=== PATIENT | female | born 1960 | race Caucasian/White ===

== ENCOUNTER 2016-05-05 06:06 | Emergency (ER) | payer OTHER ==
[~2016-05-05 06:06] MED LIST: LORA0.5T PO; PHEN100C PO; TOPI50TA4 PO
[2016-05-05] MEDS ORDERED: VITAMIN B (07:43)
[2016-05-05] MEDS ORDERED: ZOLP5TAB4 PO (07:44)
[2016-05-05] MEDS ORDERED: TIZA4TAB PO (07:45)
[2016-05-05] MEDS ORDERED: ALBU1.25 NEB (07:45)
--- NOTE | 2016-05-05 07:51 | PHYS DOC ---
Past Medical History Past Medical History: Anxiety, Seizure Past Surgical History: Smoking: Less than 1pk/day Alcohol Use: None Drug Use: None Adult General Chief Complaint Chief Complaint: COUGH HPI HPI Patient is a 56 year old female who presents with productive cough and shortness of breath for 3 weeks. She has had nasal congestion, sore throat, and ear pain. She states that she began to feel worse last night with high fevers. She did not take her temperature at home. She denies any vomiting or diarrhea. She has an inhaler and nebulizer at home, both of which she last used yesterday. She saw her PCP last week for the same symptoms. She was prescribed amoxicillin, cough medicine, and a nasal spray. She did not receive a flu shot this season. Her PCP is Dr. Zeinab Tobias. Review of Systems Review of Systems Constitutional: Reports subjective fever. Eyes: Denies change in visual acuity, redness, or eye pain. [] HENT: Reports bilateral ear pain, nasal congestion, and sore throat. Respiratory: Reports productive cough and shortness of breath. Cardiovascular: Denies chest pain, palpitations or edema. [] GI: Denies abdominal pain, nausea, vomiting, bloody stools or diarrhea. [] Musculoskeletal: Denies back pain or joint pain. [] Integument: Denies rash or skin lesions. [] Neurologic: Denies headache, focal weakness or sensory changes. [] All systems reviewed and negative unless otherwise stated in the HPI. Current Medications Current Medications Current Medications Medications (Trade) Dose Ordered Sig/[facility] Start Time Stop Time Status Last Admin Dose Admin Acetaminophen 1000 mg 1,000 mg 1X ONCE 05/05/16 08:00 05/05/16 08:01 DC 05/05/16 08:54 1,000 MG Sodium Chloride (Iv Sodium Chloride 0.9% 1000ml Bag) 1,000 ml @ 1,000 mls/hr 1X ONCE 05/05/16 09:00 05/05/16 09:59 05/05/16 08:54 1,000 MLS/HR Allergies Allergies Allergies Coded Allergies Type Severity Reaction Last Updated Verified No Known Drug Allergies 04/03/13 No Physical Exam Physical Exam Constitutional: Well developed, well nourished, no acute distress, non-toxic appearance. [] HENT: Normocephalic, atraumatic, bilateral external ears normal, oropharynx moist, no oral exudates, nose normal. Bilateral TMs without erythema or bulging. There is no posterior pharyngeal erythema or tonsillar edema. Bilateral nasal turbinates are mildly swollen and erythematous. Eyes: PERRLA, EOMI, conjunctiva normal, no discharge. [] Neck: Normal range of motion, no tenderness, supple, no stridor. [] Cardiovascular: Heart rate regular rhythm, no murmur [] Lungs & Thorax: Bilateral breath sounds clear to auscultation without wheezes, rales, or rhonchi. No respiratory distress. Skin: Warm, dry, no erythema, no rash. [] Neurologic: Alert and oriented X 3, normal motor function, normal sensory function, no focal deficits noted. [] Psychologic: Affect normal, judgement normal, mood normal. [] Current Patient Data Vital Signs Vital Signs Date Time Temp Pulse Resp B/P Pulse Ox O2 Delivery O2 Flow Rate FiO2 05/05/16 07:39 102.4 104 16 116/66 100 102.4 Lab Values Laboratory Tests Test 05/05/16 07:45 05/05/16 08:30 Influenza Type A Antigen Positive (NEGATIVE) Influenza Type B Antigen Negative (NEGATIVE) White Blood Count 12.3x10^3/uL (4.0-11.0) H Red Blood Count 4.55x10^6/uL (3.50-5.40) Hemoglobin 12.5g/dL (12.0-15.5) Hematocrit 38.0% (36.0-47.0) Mean Corpuscular Volume 84fL (79-100) Mean Corpuscular Hemoglobin 28pg (25-35) Mean Corpuscular Hemoglobin Concent 33g/dL (31-37) Red Cell Distribution Width 13.2% (11.5-14.5) Platelet Count 170x10^3/uL (140-400) Neutrophils (%) (Auto) 82% (31-73) H Lymphocytes (%) (Auto) 10% (24-48) L Monocytes (%) (Auto) 7% (0-9) Eosinophils (%) (Auto) 0% (0-3) Basophils (%) (Auto) 1% (0-3) Neutrophils # (Auto) 10.1x10^3uL (1.8-7.7) H Lymphocytes # (Auto) 1.3x10^3/uL (1.0-4.8) Monocytes # (Auto) 0.8x10^3/uL (0.0-1.1) Eosinophils # (Auto) 0.0x10^3/uL (0.0-0.7) Basophils # (Auto) 0.1x10^3/uL (0.0-0.2) Sodium Level 140mmol/L (136-145) Potassium Level 3.9mmol/L (3.5-5.1) Chloride Level 102mmol/L (98-107) Carbon Dioxide Level 26mmol/L (21-32) Anion Gap 12 (6-14) Blood Urea Nitrogen 19mg/dL (7-20) Creatinine 1.2mg/dL (0.6-1.0) H Estimated GFR (Cockcroft-Gault) 46.3 BUN/Creatinine Ratio 16 (6-20) Glucose Level 124mg/dL (70-99) H Calcium Level 8.6mg/dL (8.5-10.1) Total Bilirubin 0.2mg/dL (0.2-1.0) Aspartate Amino Transferase (AST) 50U/L (15-37) H Alanine Aminotransferase (ALT) 42U/L (14-59) Alkaline Phosphatase 194U/L (46-116) H XF-Def-W-Type Natriuretic Peptide 452pg/mL (0-124) H Total Protein 8.0g/dL (6.4-8.2) Albumin 3.3g/dL (3.4-5.0) L Albumin/Globulin Ratio 0.7 (1.0-1.7) L Laboratory Tests 05/05/16 08:30 Laboratory Tests 05/05/16 08:30 EKG EKG [] Radiology/Procedures Radiology/Procedures REASON: cough, fever, X 3 WEEKS - FEVER WORSENING X 2 DAYS PROCEDURE: CHEST PA & LATERAL Chest, 2 views, 05/05/2016: History: Cough and fever Comparison is made to a study from 07/13/2012. The heart size and pulmonary vascularity are normal. No pulmonary infiltrates are seen. There is no evidence of pleural fluid. There is a moderate amount of bowel gas in the upper abdomen. IMPRESSION: No acute cardiopulmonary abnormality is detected. Course & Med Decision Making Course & Med Decision Making Pertinent Labs and Imaging studies reviewed. (See chart for details) Patient is a 26-year-old female who presents with cough, shortness breath, and fever for 3 weeks, worsening last night. She is completed a course of amoxicillin without improvement. In the emergency department, she is febrile with a temperature of 102F. On exam, her lungs sounds are clear and she is not in any respiratory distress. Chest x-ray does not show any pneumonia. Flu swab is positive for influenza A. There were no other significant laboratory values. She is given a liter of fluids and Tylenol in the emergency department. She is discharged home with prescription for Tamiflu, prednisone, and Tessalon pearls. She is given follow-up with her PCP in 2-3 days. Return precautions are discussed. She verbalizes understanding and agrees with plan. Dragon Disclaimer Dragon Disclaimer This electronic medical record was generated, in whole or in part, using a voice recognition dictation system. Departure Departure Impression: Primary Impression: Influenza A Disposition: 01 HOME, SELF-CARE Condition: STABLE Referrals: ZEINAB TOBIAS MD (PCP) Patient Instructions: Influenza, Adult, [id number] Additional Instructions: You tested positive for influenza A. Your chest x-ray does not show pneumonia. There are no concerning laboratory findings. Complete all the prescribed medications. Please take Tylenol and ibuprofen for your fever. Please drink lots of water to stay hydrated. Please follow-up with your primary care doctor in the next 2-3 days, sooner if concerns. Return to emergency department with high fever not responding to medication, increased difficulty breathing, or other new or concerning symptoms. Scripts Oseltamivir Phosphate (Tamiflu)75 Mg Capsule1 Cap PO BID #10 CAP Prov:AARON ELIZABETH 05/05/16 Benzonatate 200 Mg Capsule1 Cap PO TID #30 CAP Prov:AARON ELIZABETH 05/05/16 Prednisone 20 Mg Votdue70 Mg PO DAILY 5 Days Prov:AARON ELIZABETH 05/05/16 AARON ELIZABETH May 05, 2016 07:51
[2016-05-05] MEDS ORDERED: ACETAMINOPHEN 500 MG TABLET PO ONE (08:00)
--- NOTE | 2016-05-05 08:03 | RAD ---
Chest, 2 views, 05/05/2016: History: Cough and fever Comparison is made to a study from 07/13/2012. The heart size and pulmonary vascularity are normal. No pulmonary infiltrates are seen. There is no evidence of pleural fluid. There is a moderate amount of bowel gas in the upper abdomen. IMPRESSION: No acute cardiopulmonary abnormality is detected.
[2016-05-05 08:17] LABS: OBC FLU VALID
[2016-05-05 08:42] LABS: BASO # 0.1 x10^3/uL (0.0-0.2); BASO % 1 % (0-3); EOS % 0 % (0-3); HEMOGLOBIN 12.5 g/dL (12.0-15.5); LYMPH # 1.3 x10^3/uL (1.0-4.8); LYMPH % 10 % (24-48); MEAN CORPUSCULAR HEMOGLOBIN 28 pg (25-35); MEAN CORPUSCULAR HGB CONC 33 g/dL (31-37); MEAN CORPUSCULAR VOLUME 84 fL (79-100); MONO % 7 % (0-9); NEUT % 82 % (31-73); PLATELET COUNT 170 x10^3/uL (140-400); RED BLOOD COUNT 4.55 x10^6/uL (3.50-5.40); RED CELL DISTRIBUTION WIDTH 13.2 % (11.5-14.5); WHITE BLOOD COUNT 12.3 x10^3/uL (4.0-11.0)
[2016-05-05 08:56] LABS: ALBUMIN 3.3 g/dL (3.4-5.0); ALBUMIN/GLOBULIN RATIO 0.7 (1.0-1.7); CALCIUM 8.6 mg/dL (8.5-10.1); CREATININE 1.2 mg/dL (0.6-1.0); GFR 46.3; POTASSIUM 3.9 mmol/L (3.5-5.1); TOTAL BILIRUBIN 0.2 mg/dL (0.2-1.0)
[2016-05-05] MEDS ORDERED: IV NORMAL SALINE 1000ML BAG 1,000 ML IV ONE (09:00)
[2016-05-05] MEDS ORDERED: OSEL75CA PO (09:21)
[2016-05-05] MEDS ORDERED: PRED20TA PO (09:21)
[2016-05-05] MEDS ORDERED: BENZ200C39 PO (09:21)
[2016-05-05 13:01] VITALS: BP 126/79
== END 2016-05-05 09:45 | disposition home or self-care (01) ==
LOC: ER 06:06
DX: J09.X2 Influenza due to identified novel influenza A virus with other respiratory manifestations (principal); H92.09 Otalgia, unspecified ear; F17.200 Nicotine dependence, unspecified, uncomplicated
CPT/HCPCS: 36415; 71020; 80053; 83880; 85027; 87804; 96360; 99285; J7030

== ENCOUNTER → 2016-05-16 | Outpatient (CLI) | payer OTHER ==
[2016-05-05 13:01] VITALS: BP 126/79
[~2016-05-16] MED LIST changes: +ALBU1.25 NEB; +BENZ200C39 PO; +OSEL75CA PO; +PRED20TA PO; +TIZA4TAB PO; +VITAMIN B; +ZOLP5TAB4 PO
--- NOTE | 2016-05-16 10:21 | RAD ---
DATE: 05/16/2016. EXAM: DIGITAL SCREEN BILAT W/CAD. HISTORY: Routine mammographic screening. COMPARISON: 10/04/2014. This study was interpreted with the benefit of Computerized Aided Detection (CAD). FINDINGS: The breast parenchyma heterogeneously dense, which could reduce sensitivity of mammography. There are no suspicious masses, microcalcifications or architectural distortion. Scattered and coarse calcifications appear benign. BI-RADS CATEGORY: 2 BENIGN FINDING(S). RECOMMENDED FOLLOW-UP: 12M 12 MONTH FOLLOW-UP. PQRS compliance statement: Patient information was entered into a reminder system with a target due date 05/16/2017 for the next mammogram. Mammography is a sensitive method for finding small breast cancers, but it does not detect them all and is not a substitute for careful clinical examination. A negative mammogram does not negate a clinically suspicious finding and should not result in delay in biopsying a clinically suspicious abnormality. "Our facility is accredited by the [employer] Mammography Program."
== END | disposition home or self-care (01) ==
LOC: MAMMO 09:13
PROVIDERS: ATTEND Pediatrics
DX: Z12.31 Encounter for screening mammogram for malignant neoplasm of breast (principal)
CPT/HCPCS: G0202; 77067

== ENCOUNTER 2016-10-10 18:46 | Inpatient (IN) | payer OTHER ==
[~2016-10-10] VITALS: Ht 160 cm; Wt 62.3 kg
[~2016-10-10 18:46] MED LIST changes: -BENZ200C39 PO; +BENZ200C47 PO; -TOPI50TA4 PO; +TOPI50TA8 PO; -ZOLP5TAB4 PO; +ZOLP5TAB5 PO
[2016-10-10 19:18] LABS: BASO # 0.1 x10^3/uL (0.0-0.2); BASO % 1 % (0-3); EOS % 3 % (0-3); HEMATOCRIT 37.7 % (36.0-47.0); HEMOGLOBIN 12.7 g/dL (12.0-15.5); LYMPH % 49 % (24-48); MEAN CORPUSCULAR HEMOGLOBIN 28 pg (25-35); MEAN CORPUSCULAR HGB CONC 34 g/dL (31-37); MEAN CORPUSCULAR VOLUME 83 fL (79-100); MONO % 7 % (0-9); NEUT % 40 % (31-73); PLATELET COUNT 107 x10^3/uL (140-400); RED BLOOD COUNT 4.54 x10^6/uL (3.50-5.40); RED CELL DISTRIBUTION WIDTH 13.5 % (11.5-14.5); WHITE BLOOD COUNT 10.4 x10^3/uL (4.0-11.0)
[2016-10-10 19:40] LABS: CALCIUM 8.9 mg/dL (8.5-10.1); CREATININE 0.9 mg/dL (0.6-1.0); GFR 64.5; POTASSIUM 3.8 mmol/L (3.5-5.1)
[2016-10-10 19:46] LABS: ALBUMIN 3.4 g/dL (3.4-5.0); ALBUMIN/GLOBULIN RATIO 0.9 (1.0-1.7); TOTAL BILIRUBIN 0.1 mg/dL (0.2-1.0); TOTAL PROTEIN 7.3 g/dL (6.4-8.2)
[2016-10-10 20:02] LABS: BILIRUBIN,URINE NEGATIVE (NEG); GLUCOSE,URINE NEGATIVE (NEG); NITRITE,URINE NEGATIVE (NEG); PROTEIN,URINE NEGATIVE (NEG-TRACE)
[2016-10-10 20:19] LABS: BACTERIA,URINE 0 /HPF (0-FEW); RBC,URINE OCC /HPF (0-2); SQUAMOUS EPITHELIAL CELL,UR MOD /LPF
[2016-10-10] MEDS ORDERED: ACETAMINOPHEN 325 MG TABLET. PO PRN (21:15)
[2016-10-10] MEDS ORDERED: NITROGLYCERIN SUBLINGUAL 0.4 MG BOTTLE OF 25. SL PRN (21:15)
[2016-10-10] MEDS ORDERED: ONDANSETRON PF 4 MG/2 ML VIAL. IV PRN (21:15)
--- NOTE | 2016-10-10 21:43 | PHYS DOC ---
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 Patient reports that she is currently pain-free. Patient reports that the pain felt like a pressure sensation however she also described at times as a sharp stabbing pain as well. Patient denies any shortness of breath with it. Patient reports she was diaphoretic however she reports that she was sitting in an aunt air conditioned apartment. Patient has any radiating pain to her arms or back. Patient has a nausea or vomiting. Patient denies any recent fevers cough cold runny nose vomiting or diarrhea. Patient denies any abdominal pain. Patient reports that she had a extra stress test approximately 10 years ago that was normal. Patient denies any other interrogation of her heart over the last 10 years. Patient reports no prior cardiac catheterization. Patient reports no recent stress test. Patient reports she does not have a primary care physician. Patient denies any history of diabetes. Patient reports she thinks she has hypertension. Patient reports a history of seizures in the past. Patient reports she takes Ativan for seizures. Patient's physical exam is unremarkable the ER. Patient's heart with regular rate and rhythm. Lungs were clear. Abdomen was soft nontender no rebound or guarding. Patient has no reproducible tenderness to palpation to her anterior chest wall. Patient's ER labs were unremarkable. Patient had a normal CBC and chemistry. Patient's troponin is unremarkable. Patient's EKG revealed normal sinus rhythm at a heart rate of [address]-T wave abnormalities. Patient has poor wave heart rate progression in V1 through V3 consistent with an age- indeterminate anteroseptal wall DE likely old. Assessment and plan: This a 56-year-old female who presents here today secondary to complaint of chest pain. Patient has a history of hypertension. Patient's pain is atypical however given her age and her symptoms patient will be admitted for rule out DE protocol and to evaluate by cardiology and serial troponins and EKGs. Laboratory Tests Test 10/10/16 19:05 10/10/16 19:35 White Blood Count 10.4 x10^3/uL Red Blood Count 4.54 x10^6/uL Hemoglobin 12.7 g/dL Hematocrit 37.7 % Mean Corpuscular Volume 83 fL Mean Corpuscular Hemoglobin 28 pg Mean Corpuscular Hemoglobin Concent 34 g/dL Red Cell Distribution Width 13.5 % Platelet Count 107 x10^3/uL Neutrophils (%) (Auto) 40 % Lymphocytes (%) (Auto) 49 % Monocytes (%) (Auto) 7 % Eosinophils (%) (Auto) 3 % Basophils (%) (Auto) 1 % Neutrophils # (Auto) 4.2 x10^3uL Lymphocytes # (Auto) 5.0 x10^3/uL Monocytes # (Auto) 0.7 x10^3/uL Eosinophils # (Auto) 0.3 x10^3/uL Basophils # (Auto) 0.1 x10^3/uL Sodium Level 142 mmol/L Potassium Level 3.8 mmol/L Chloride Level 107 mmol/L Carbon Dioxide Level 25 mmol/L Anion Gap 10 Blood Urea Nitrogen 17 mg/dL Creatinine 0.9 mg/dL Estimated GFR (Cockcroft-Gault) 64.5 BUN/Creatinine Ratio 19 Glucose Level 106 mg/dL Calcium Level 8.9 mg/dL Total Bilirubin 0.1 mg/dL Aspartate Amino Transf (AST/SGOT) 22 U/L Alanine Aminotransferase (ALT/SGPT) 17 U/L Alkaline Phosphatase 201 U/L Troponin I Quantitative < 0.017 ng/mL LC-Eie-D-Type Natriuretic Peptide 137 pg/mL Total Protein 7.3 g/dL Albumin 3.4 g/dL Albumin/Globulin Ratio 0.9 Urine Collection Type Unknown Urine Color Yellow Urine Clarity Clear Urine pH 7.0 Urine Specific [place] 1.015 Urine Protein Negative mg/dL Urine Glucose (UA) Negative mg/dL Urine Ketones (Stick) Negative mg/dL Urine Blood Negative Urine Nitrite Negative Urine Bilirubin Negative Urine Urobilinogen Dipstick 1.0 mg/dL Urine Leukocyte Esterase Negative Urine RBC Occ /HPF Urine WBC 1-4 /HPF Urine Squamous Epithelial Cells Mod /LPF Urine Bacteria 0 /HPF Urine Mucus Slight /LPF Review of Systems Review of Systems Constitutional: Denies fever or chills [] Eyes: Denies change in visual acuity, redness, or eye pain [] HENT: Denies nasal congestion or sore throat [] All other review systems are negative except as documented in the history of present illness portion. Allergies Allergies Allergies Coded Allergies Type Severity Reaction Last Updated Verified No Known Drug Allergies 04/03/13 No Physical Exam Physical Exam Constitutional: Well developed, well nourished, no acute distress, non-toxic appearance. [] HENT: Normocephalic, atraumatic, bilateral external ears normal, oropharynx moist, no oral exudates, nose normal. [] Eyes: PERRLA, EOMI, conjunctiva normal, no discharge. [] Neck: Normal range of motion, no tenderness, supple, Cardiovascular:Heart rate regular rhythm, Lungs & Thorax: Bilateral breath sounds clear to auscultation [] Abdomen: Bowel sounds normal, soft, no tenderness, no masses, no pulsatile masses. [] Skin: Warm, dry, no erythema, no rash. [] Back: No tenderness, no CVA tenderness. [] Extremities: No tenderness, no cyanosis, no clubbing, ROM intact, no edema. [] Neurologic: Alert and oriented X 3, normal motor function, normal sensory function, no focal deficits noted. [] Psychologic: Affect normal, judgement normal, mood normal. [] Current Patient Data Vital Signs Vital Signs Date Time Temp Pulse Resp B/P (MAP) Pulse Ox O2 Delivery O2 Flow Rate FiO2 10/10/16 20:59 65 127/85 (99) 98 Room Air 10/10/16 18:48 98.0 18 98.0 Lab Values Laboratory Tests Test 10/10/16 19:05 10/10/16 19:35 White Blood Count 10.4 x10^3/uL (4.0-11.0) Red Blood Count 4.54 x10^6/uL (3.50-5.40) Hemoglobin 12.7 g/dL (12.0-15.5) Hematocrit 37.7 % (36.0-47.0) Mean Corpuscular Volume 83 fL (79-100) Mean Corpuscular Hemoglobin 28 pg (25-35) Mean Corpuscular Hemoglobin Concent 34 g/dL (31-37) Red Cell Distribution Width 13.5 % (11.5-14.5) Platelet Count 107 x10^3/uL (140-400) L Neutrophils (%) (Auto) 40 % (31-73) Lymphocytes (%) (Auto) 49 % (24-48) H Monocytes (%) (Auto) 7 % (0-9) Eosinophils (%) (Auto) 3 % (0-3) Basophils (%) (Auto) 1 % (0-3) Neutrophils # (Auto) 4.2 x10^3uL (1.8-7.7) Lymphocytes # (Auto) 5.0 x10^3/uL (1.0-4.8) H Monocytes # (Auto) 0.7 x10^3/uL (0.0-1.1) Eosinophils # (Auto) 0.3 x10^3/uL (0.0-0.7) Basophils # (Auto) 0.1 x10^3/uL (0.0-0.2) Sodium Level 142 mmol/L (136-145) Potassium Level 3.8 mmol/L (3.5-5.1) Chloride Level 107 mmol/L (98-107) Carbon Dioxide Level 25 mmol/L (21-32) Anion Gap 10 (6-14) Blood Urea Nitrogen 17 mg/dL (7-20) Creatinine 0.9 mg/dL (0.6-1.0) Estimated GFR (Cockcroft-Gault) 64.5 BUN/Creatinine Ratio 19 (6-20) Glucose Level 106 mg/dL (70-99) H Calcium Level 8.9 mg/dL (8.5-10.1) Total Bilirubin 0.1 mg/dL (0.2-1.0) L Aspartate Amino Transferase (AST) 22 U/L (15-37) Alanine Aminotransferase (ALT) 17 U/L (14-59) Alkaline Phosphatase 201 U/L (46-116) H Troponin I Quantitative < 0.017 ng/mL (0.000-0.055) HB-Plf-M-Type Natriuretic Peptide 137 pg/mL (0-124) H Total Protein 7.3 g/dL (6.4-8.2) Albumin 3.4 g/dL (3.4-5.0) Albumin/Globulin Ratio 0.9 (1.0-1.7) L Urine Collection Type Unknown Urine Color Yellow Urine Clarity Clear Urine pH 7.0 Urine Specific [place] 1.015 Urine Protein Negative mg/dL (NEG-TRACE) Urine Glucose (UA) Negative mg/dL (NEG) Urine Ketones (Stick) Negative mg/dL (NEG) Urine Blood Negative (NEG) Urine Nitrite Negative (NEG) Urine Bilirubin Negative (NEG) Urine Urobilinogen Dipstick 1.0 mg/dL (0.2 mg/dL) Urine Leukocyte Esterase Negative (NEG) Urine RBC Occ /HPF (0-2) Urine WBC 1-4 /HPF (0-4) Urine Squamous Epithelial Cells Mod /LPF Urine Bacteria 0 /HPF (0-FEW) Urine Mucus Slight /LPF Laboratory Tests 10/10/16 19:05 Laboratory Tests 10/10/16 19:05 EKG EKG [] Radiology/Procedures Radiology/Procedures [] Course & Med Decision Making Course & Med Decision Making Pertinent Labs and Imaging studies reviewed. (See chart for details) [] Dragon Disclaimer Dragon Disclaimer This electronic medical record was generated, in whole or in part, using a voice recognition dictation system. Departure Departure Impression: Primary Impression: Chest pain Additional Impression: Unstable angina Disposition: 09 ADMITTED INPATIENT Admitting Physician: Other Condition: STABLE (reusch) Referrals: ZEINAB TOBIAS MD (PCP) Problem Qualifiers YOKO MAY MD Oct 10, 2016 21:43
[2016-10-10] MEDS ORDERED: ASPIRIN CHEWABLE 81 MG TABLET. PO ONE (21:45)
[2016-10-10] MEDS ORDERED: NITROGLYCERIN OINT 1 GM PACKET. TP ONE (22:00)
[2016-10-10] MEDS ORDERED: PHENYTOIN SODIUM EXTENDED 100 MG CAPSULE PO ONE (22:00)
[2016-10-10 22:12] VITALS: BP 146/86
[2016-10-10] MEDS ORDERED: PHEN100C PO (22:41)
[2016-10-10] MEDS ORDERED: TIZA4TAB PO (22:44)
[2016-10-10] MEDS ORDERED: ASPI-482 PO (22:46)
[2016-10-10] MEDS ORDERED: CITA20TA5 PO (22:46)
[2016-10-10] MEDS ORDERED: CETI10TA16 PO (22:46)
[2016-10-11] MEDS ORDERED: NON FORMULARY ITEM (Albuterol Sulfate (Albuterol Sulfate Neb Soln) 1 VIAL) NEB PRN
[2016-10-11] MEDS ORDERED: ALBUTEROL SULFATE 2.5 MG/3 ML NEBU. NEB PRN
[2016-10-11] MEDS ORDERED: TOPIRAMATE 100 MG TABLET. PO SCH
[2016-10-11] MEDS ORDERED: PHENYTOIN SODIUM EXTENDED 100 MG CAPSULE PO ONE (00:15)
[2016-10-11] MEDS ORDERED: PHENYTOIN SODIUM EXTENDED 100 MG CAPSULE PO SCH ×2 (00:15→21:00)
[2016-10-11 02:58] VITALS: BP 108/63
--- NOTE | 2016-10-11 04:13 | ACF ---
Admission Forms Criteria TELEMETRY CARE Telemetry Admission Guidelines (Place 'X' for any and all applicable criteria): Admission to telemetry [A] may be indicated for ANY ONE of the following(1)(2)(3 )(4)(5): [X]I. Cardiac disease, including ANY ONE of the following (9)(10)(11)(12)(13 ): [ ]a) Postacute KS [ ]b) Low-risk patients with ST-segment elevation KS who have undergone successful percutaneous coronary intervention [X]c) Unstable angina [ ]d) Suspected KS (until it is ruled out) [ ]e) Post cardiac surgery (first 48 to 72 hours unless complications occur) [ ]f) Acute arrhythmias (including significant tachycardia or bradycardia) [B] [ ]g) Firing of an implantable cardioverter defibrillator [C] [ ]h) Suspected pacemaker or implantable cardioverter defibrillator malfunction (10) [ ]i) New administration or adjustment of an antiarrhythmic drug [D ] [ ]j) Child admitted for acute congestive heart failure [ ]j) Long QT syndrome [ ]k) Advanced heart block (eg, second-degree Mobitz type II, third- degree heart block) [ ]l) Acute myocarditis or pericarditis [ ]m) Short-term (ambulatory or inpatient) monitoring after a cardiac procedure as indicated by ANY ONE of the following [E]: [ ]i) Electrophysiologic studies [ ]ii) Percutaneous coronary intervention with stent placement [ ]iii) Pacemaker placement with cardiac conduction defect [ ]iv) Implantable cardiac defibrillator placement [ ]II. Drug overdose or poisoning with substance that causes arrhythmias or QT prolongation (eg, phenothiazines, sympathomimetic agents, cyclic antidepressants, digitalis, antiarrhythmic drugs)(15) [ ]III. Short-term (ambulatory or inpatient) monitoring after therapeutic or diagnostic procedure requiring conscious sedation or anesthesia (eg, endoscopy, elective cardioversion) [ ]IV. Acute cerebrovascular even[F](18) [ ]V. Massive blood transfusion (eg, at least 10 units of packed red blood cells in 24 hours) [ ]. Variceal bleeding after endoscopy, sclerotherapy, or IV vasopressin [ ]VII. Uncorrected electrolyte abnormalities associated with an increased risk of dangerous arrhythmia [G]; examples include [ ]a) Hyperkalemia with attributable ECG changes [ ]b) Potassium greater than 6.5 mmol/L (mEq/L) in a patient without history of chronic renal disease [ ]c) Prolonged QT attributed to hypokalemia, hypomagnesemia, or hypocalcemia [ ]VIII.Unexplained syncope or other neurologic event suspected of being due to arrhythmia due to a finding that increases risk; examples include(19)(20)(21): [ ]a) High-risk ECG findings (eg, bifascicular block, bradycardia, abnormal QT interval, ventricular pre- excitation) [ ]b) History of previous syncope due to arrhythmia [ ]c) Abnormal ventricular function (eg, reduced ejection fraction ) [ ]d) Exertional or supine syncope [ ]e) Concerning syncope characteristics (eg, sudden loss of consciousness without prodrome) [ ]f) Family history of sudden [ ]g) Use of arrhythmogenic medication [ ]h) Suspected cardiac ischemia [ ]i) Known channelopathy (eg, long QT syndrome, Brugada syndrome, or catecholaminergic paroxysmal ventricular tachycardia) [ ]j) Known structural heart disease (eg, hypertrophic cardiomyopathy , severe valvular disease) [ ]k) Palpitations preceding syncope The original [employer] content created by [employer] has been revised. The portions of the content which have been revised are identified through the use of italic text or in bold, and [email or web address] has neither reviewed nor approved the modified material. All other unmodified content is copyright [employer]. Please see references footnoted in the original [employer] edition 2016 Admission Criteria Met?: Yes SIMRAN MARKS Oct 11, 2016 04:13
--- NOTE | 2016-10-11 07:34 | EKG ---
[facility] [address] [place] [address] Test Date: 2016-10-10 Test Time: 18:49:38 Pat Name: LIDIA HURST Department: Room: Gender: F Tip Printer: : 1960 Requested By: YOKO MAY Order Number: [id number] Reading MD: Measurements Intervals [place] Rate: 71 P: 24 LA: 116 QRS: 6 QRSD: 68 T: 114 QT: 390 QTc: 429 Interpretive Statements SINUS RHYTHM R-S TRANSITION ZONE IN V LEADS DISPLACED TO THE RIGHT T ABNORMALITY IN ANTERIOR LEADS HIGH LATERAL LEADS RI6.01 Unconfirmed report No previous ECG available for comparison
[2016-10-11 07:44] VITALS: BP 138/99
--- NOTE | 2016-10-11 08:55 | RAD ---
Indication left-sided chest pain. A single view of the chest was obtained. Comparison is made to an examination 05/05/2016. The heart and pulmonary vessels appear normal. The lungs are clear. There is no pleural fluid or pneumothorax. Bony structures appear unremarkable. Overall a significant change compared to the previous exam is not seen. IMPRESSION: No acute or focal process. No significant change
[2016-10-11] MEDS ORDERED: tiZANidine 4 MG TABLET. PO SCH (09:00)
[2016-10-11] MEDS ORDERED: CITALOPRAM 20 MG TABLET. PO SCH (09:00)
[2016-10-11] MEDS ORDERED: BENZONATATE 100 MG CAPSULE. PO SCH (09:00)
[2016-10-11] MEDS ORDERED: ASPIRIN ENTERIC COATED 81 MG TABLET.DR. PO SCH (09:00)
[2016-10-11] MEDS ORDERED: CETIRIZINE HCL 10 MG TABLET. PO SCH (09:00)
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
--- NOTE | 2016-10-11 10:44 | PDOC1 ---
History and Physical Current Problem List Problem List Problems Medical Problems: (1) Chest pain Status: Acute (2) Unstable angina Status: Acute Current Medications Current Medications Current Medications Medications (Trade) Dose Ordered Sig/Lars Start Time Stop Time Status Last Admin Dose Admin Acetaminophen (Tylenol) 650 mg PRN Q4HRS PRN 10/10/16 21:15 10/11/16 21:14 Albuterol Sulfate (Ventolin Neb Soln) 2.5 mg PRN Q6HRS PRN 10/11/16 00:00 10/11/16 08:44 2.5 MG Aspirin (Children'S Aspirin) 324 mg 1X ONCE 10/10/16 21:45 10/10/16 21:48 DC Aspirin (Ecotrin) 81 mg DAILY 10/11/16 09:00 10/11/16 09:30 81 MG Benzonatate (Tessalon Perle) 200 mg [id number] 10/11/16 09:00 10/11/16 09:30 200 MG Cetirizine HCl (ZyrTEC) 10 mg DAILY 10/11/16 09:00 10/11/16 09:30 10 MG Citalopram Hydrobromide (CeleXA) 20 mg DAILY 10/11/16 09:00 10/11/16 09:30 20 MG Nitroglycerin (Nitro-Bid Oint) 1 inch 1X ONCE 10/10/16 22:00 10/10/16 22:01 DC 10/10/16 23:07 1 INCH Nitroglycerin (Nitrostat) 0.4 mg PRN Q5MIN PRN 10/10/16 21:15 10/11/16 21:14 Non-Formulary Medication 100 mg HS 10/11/16 21:00 10/11/16 21:00 DC Ondansetron HCl (Zofran) 4 mg PRN Q8HRS PRN 10/10/16 21:15 10/11/16 21:14 Phenytoin Sodium (Dilantin) 400 mg 1X ONCE 10/11/16 00:15 10/11/16 00:16 DC 10/11/16 00:14 400 MG Tizanidine HCl (Zanaflex) 2 mg DAILY 10/11/16 09:00 10/11/16 09:30 2 MG Topiramate (Topamax) 100 mg QHS 10/11/16 00:00 10/11/16 00:08 100 MG Zolpidem Tartrate (Ambien) 5 mg QHS 10/11/16 21:00 Allergies Allergies Allergies Coded Allergies Type Severity Reaction Last Updated Verified No Known Drug Allergies 04/03/13 No ROS Review of System CONSTITUTIONAL: No fever or chills EYES: No recent changes SKIN: No rash or itching CARDIOVASCULAR: No chest pain, syncope, palpitations, or edema RESPIRATORY: No SOB or cough GASTROINTESTINAL: No nausea, vomiting or abdominal pain NEUROLOGICAL: No headaches or weakness ENDOCRINE: No cold or heat intolerance GENITOURINARY: No urgency or frequency of urination MUSCULOSKELETAL: No back pain or joint pain LYMPHATICS: No enlarged lymph nodes PSYCHIATRIC: No anxiety or depression Physical Exam Physical Exam GEN.: No apparent distress. Alert and oriented. HEENT: Head is normocephalic, atraumatic NECK: Supple. LUNGS: Clear to auscultation. HEART: RRR, S1, S2 present. Peripheral pulses intact ABDOMEN: Soft, nontender. Positive bowel sounds. EXTREMITIES: Without any cyanosis. NEUROLOGIC: Normal speech, normal tone PSYCHIATRIC: Normal affect, normal mood. SKIN: No ulcerations Vitals Vitals Vital Signs Date Time Temp Pulse Resp B/P (MAP) Pulse Ox O2 Delivery O2 Flow Rate FiO2 10/11/16 08:45 98 Room Air 10/11/16 07:44 96.7 65 18 138/99 (112) 96.7 Labs Labs Laboratory Tests Test 10/10/16 19:05 10/10/16 19:35 10/11/16 02:20 White Blood Count 10.4 x10^3/uL (4.0-11.0) Red Blood Count 4.54 x10^6/uL (3.50-5.40) Hemoglobin 12.7 g/dL (12.0-15.5) Hematocrit 37.7 % (36.0-47.0) Mean Corpuscular Volume 83 fL (79-100) Mean Corpuscular Hemoglobin 28 pg (25-35) Mean Corpuscular Hemoglobin Concent 34 g/dL (31-37) Red Cell Distribution Width 13.5 % (11.5-14.5) Platelet Count 107 x10^3/uL (140-400) Neutrophils (%) (Auto) 40 % (31-73) Lymphocytes (%) (Auto) 49 % (24-48) Monocytes (%) (Auto) 7 % (0-9) Eosinophils (%) (Auto) 3 % (0-3) Basophils (%) (Auto) 1 % (0-3) Neutrophils # (Auto) 4.2 x10^3uL (1.8-7.7) Lymphocytes # (Auto) 5.0 x10^3/uL (1.0-4.8) Monocytes # (Auto) 0.7 x10^3/uL (0.0-1.1) Eosinophils # (Auto) 0.3 x10^3/uL (0.0-0.7) Basophils # (Auto) 0.1 x10^3/uL (0.0-0.2) Sodium Level 142 mmol/L (136-145) Potassium Level 3.8 mmol/L (3.5-5.1) Chloride Level 107 mmol/L (98-107) Carbon Dioxide Level 25 mmol/L (21-32) Anion Gap 10 (6-14) Blood Urea Nitrogen 17 mg/dL (7-20) Creatinine 0.9 mg/dL (0.6-1.0) Estimated GFR (Cockcroft-Gault) 64.5 BUN/Creatinine Ratio 19 (6-20) Glucose Level 106 mg/dL (70-99) Calcium Level 8.9 mg/dL (8.5-10.1) Total Bilirubin 0.1 mg/dL (0.2-1.0) Aspartate Amino Transf (AST/SGOT) 22 U/L (15-37) Alanine Aminotransferase (ALT/SGPT) 17 U/L (14-59) Alkaline Phosphatase 201 U/L (46-116) Troponin I Quantitative < 0.017 ng/mL (0.000-0.055) < 0.017 ng/mL (0.000-0.055) CN-Pla-M-Type Natriuretic Peptide 137 pg/mL (0-124) Total Protein 7.3 g/dL (6.4-8.2) Albumin 3.4 g/dL (3.4-5.0) Albumin/Globulin Ratio 0.9 (1.0-1.7) Urine Collection Type Unknown Urine Color Yellow Urine Clarity Clear Urine pH 7.0 Urine Specific [place] 1.015 Urine Protein Negative mg/dL (NEG-TRACE) Urine Glucose (UA) Negative mg/dL (NEG) Urine Ketones (Stick) Negative mg/dL (NEG) Urine Blood Negative (NEG) Urine Nitrite Negative (NEG) Urine Bilirubin Negative (NEG) Urine Urobilinogen Dipstick 1.0 mg/dL (0.2 mg/dL) Urine Leukocyte Esterase Negative (NEG) Urine RBC Occ /HPF (0-2) Urine WBC 1-4 /HPF (0-4) Urine Squamous Epithelial Cells Mod /LPF Urine Bacteria 0 /HPF (0-FEW) Urine Mucus Slight /LPF Laboratory Tests Test 10/10/16 19:05 10/10/16 19:35 10/11/16 02:20 White Blood Count 10.4 x10^3/uL (4.0-11.0) Red Blood Count 4.54 x10^6/uL (3.50-5.40) Hemoglobin 12.7 g/dL (12.0-15.5) Hematocrit 37.7 % (36.0-47.0) Mean Corpuscular Volume 83 fL (79-100) Mean Corpuscular Hemoglobin 28 pg (25-35) Mean Corpuscular Hemoglobin Concent 34 g/dL (31-37) Red Cell Distribution Width 13.5 % (11.5-14.5) Platelet Count 107 x10^3/uL (140-400) Neutrophils (%) (Auto) 40 % (31-73) Lymphocytes (%) (Auto) 49 % (24-48) Monocytes (%) (Auto) 7 % (0-9) Eosinophils (%) (Auto) 3 % (0-3) Basophils (%) (Auto) 1 % (0-3) Neutrophils # (Auto) 4.2 x10^3uL (1.8-7.7) Lymphocytes # (Auto) 5.0 x10^3/uL (1.0-4.8) Monocytes # (Auto) 0.7 x10^3/uL (0.0-1.1) Eosinophils # (Auto) 0.3 x10^3/uL (0.0-0.7) Basophils # (Auto) 0.1 x10^3/uL (0.0-0.2) Sodium Level 142 mmol/L (136-145) Potassium Level 3.8 mmol/L (3.5-5.1) Chloride Level 107 mmol/L (98-107) Carbon Dioxide Level 25 mmol/L (21-32) Anion Gap 10 (6-14) Blood Urea Nitrogen 17 mg/dL (7-20) Creatinine 0.9 mg/dL (0.6-1.0) Estimated GFR (Cockcroft-Gault) 64.5 BUN/Creatinine Ratio 19 (6-20) Glucose Level 106 mg/dL (70-99) Calcium Level 8.9 mg/dL (8.5-10.1) Total Bilirubin 0.1 mg/dL (0.2-1.0) Aspartate Amino Transf (AST/SGOT) 22 U/L (15-37) Alanine Aminotransferase (ALT/SGPT) 17 U/L (14-59) Alkaline Phosphatase 201 U/L (46-116) Troponin I Quantitative < 0.017 ng/mL (0.000-0.055) < 0.017 ng/mL (0.000-0.055) EM-Stn-Q-Type Natriuretic Peptide 137 pg/mL (0-124) Total Protein 7.3 g/dL (6.4-8.2) Albumin 3.4 g/dL (3.4-5.0) Albumin/Globulin Ratio 0.9 (1.0-1.7) Urine Collection Type Unknown Urine Color Yellow Urine Clarity Clear Urine pH 7.0 Urine Specific [place] 1.015 Urine Protein Negative mg/dL (NEG-TRACE) Urine Glucose (UA) Negative mg/dL (NEG) Urine Ketones (Stick) Negative mg/dL (NEG) Urine Blood Negative (NEG) Urine Nitrite Negative (NEG) Urine Bilirubin Negative (NEG) Urine Urobilinogen Dipstick 1.0 mg/dL (0.2 mg/dL) Urine Leukocyte Esterase Negative (NEG) Urine RBC Occ /HPF (0-2) Urine WBC 1-4 /HPF (0-4) Urine Squamous Epithelial Cells Mod /LPF Urine Bacteria 0 /HPF (0-FEW) Urine Mucus Slight /LPF VTE Prophylaxis Ordered VTE Prophylaxis Devices: Yes VTE Pharmacological Prophylaxi: Yes PETRA MATTHEWS MD Oct 11, 2016 10:44
--- NOTE | 2016-10-11 11:22 | HP ---
ADMIT DATE: 10/10/2016 CHIEF COMPLAINT: Chest pain/chest pressure. HISTORY OF PRESENT ILLNESS: A 56-year-old -Mex[place] female patient presented to the ER with complaints of 1-day onset of chest pressure. The patient described it as somebody dancing on her chest, symptoms lasted for a few minutes. She denies any symptoms such as nausea, vomiting, diaphoresis, or abdominal pain. The patient was admitted last night and from that time, she did not have any symptoms. She denies any syncope or palpitations. She had a stress test nearly 10 years ago, which was normal, never had a cardiac catheterization. PAST MEDICAL HISTORY: Anxiety, seizures. PAST SURGICAL HISTORY: and unknown tumor in the brain, currently on seizure medications. PERSONAL HISTORY: Currently smoking. No alcohol, no drug abuse. FAMILY HISTORY: Unknown to patient. ALLERGIES: NKDA. REVIEW OF SYSTEMS AND PHYSICAL EXAMINATION: Please see my electronic H and P. LABORATORY DATA: WBC 10.4, hemoglobin 12.7, hematocrit 37.7, and platelets 107,000. Chemistry: Sodium 142, potassium 3.8, chloride is 107, anion gap is 10. BUN is 17, creatinine 0.9. Urinalysis: Nitrites negative, bilirubin negative, leukocyte esterase negative. EKG personally reviewed and chest x-ray personally reviewed. No acute findings noted. ASSESSMENT AND PLAN: 1. Chest pain/palpitations. 2. History of seizures and brain tumor. 3. Nicotine use. PLAN: 1. Her labs reviewed, 2 sets of troponins were negative and EKG is negative. I will order D-dimer and CT of the chest. Most of the symptoms are likely due to heat related and dehydration. 2. Continue IV hydration. 3. Continue current medications. 4. Cardiology consulted. 5. No old records available. 6. Discharge planning based on imaging studies. PETRA MATTHEWS MD DR: GANGA/ayah JOB#: [id number] / [id number]
[2016-10-11] MEDS ORDERED: CONTRAST GIVEN MC PRN (11:45)
[2016-10-11] MEDS ORDERED: IOHEXOL 300 MG/ML 75 ML VIAL IV ONE (11:45)
[2016-10-11] MEDS ORDERED: ZOLPIDEM 5 MG TABLET. PO SCH (21:00)
[2016-10-11] MEDS ORDERED: TOPIRAMATE 100 MG PO SCH (21:00)
[2016-10-12] MEDS ORDERED: PHENYTOIN SODIUM EXTENDED 100 MG CAPSULE PO SCH ×3 (09:00→21:00)
== END 2016-10-11 10:58 | disposition left against medical advice (07) | DRG 313 ==
LOC: ER 18:46 → 2 SOUTH 21:07
PROVIDERS: ADMIT Internal Medicine Hematology & Oncology; ATTEND Internal Medicine Hematology & Oncology
DX: R07.89 Other chest pain (principal); I10 Essential (primary) hypertension; F41.9 Anxiety disorder, unspecified; F17.200 Nicotine dependence, unspecified, uncomplicated; R00.2 Palpitations; Z79.899 Other long term (current) drug therapy; Z86.73 Personal history of transient ischemic attack (TIA), and cerebral infarction without residual deficits
CPT/HCPCS: 36415; 71010; 80053; 81001; 83880; 84484; 85027; 93005; 94250; 94640; J7613; 99285-25

== ENCOUNTER 2017-05-12 09:25 | Inpatient (IN) | payer OTHER ==
[2017-05-12 09:56] LABS: ADD MAN DIFF? NO
[2017-05-12 10:00] LABS: BASO # 0.1 x10^3/uL (0.0-0.2); BASO % 1 % (0-3); EOS # 0.2 x10^3/uL (0.0-0.7); EOS % 3 % (0-3); HEMATOCRIT 39.9 % (36.0-47.0); HEMOGLOBIN 13.4 g/dL (12.0-15.5); LYMPH # 3.5 x10^3/uL (1.0-4.8); LYMPH % 46 % (24-48); MEAN CORPUSCULAR HEMOGLOBIN 28 pg (25-35); MEAN CORPUSCULAR HGB CONC 34 g/dL (31-37); MEAN CORPUSCULAR VOLUME 83 fL (79-100); MONO # 0.6 x10^3/uL (0.0-1.1); MONO % 7 % (0-9); NEUT # 3.2 x10^3uL (1.8-7.7); NEUT % 42 % (31-73); PLATELET COUNT 178 x10^3/uL (140-400); RED BLOOD COUNT 4.79 x10^6/uL (3.50-5.40); RED CELL DISTRIBUTION WIDTH 13.2 % (11.5-14.5); WHITE BLOOD COUNT 7.6 x10^3/uL (4.0-11.0)
[2017-05-12 10:13] LABS: INR 1.1 (0.8-1.1); PARTIAL THROMBOPLASTIN TIME 27 SEC (24-38); PROTHROMBIN TIME PATIENT 13.2 SEC (11.7-14.0)
[2017-05-12 10:14] LABS: ANION GAP 10 (6-14); BLOOD UREA NITROGEN 27 mg/dL (7-20); CALCIUM 9.1 mg/dL (8.5-10.1); CARBON DIOXIDE 26 mmol/L (21-32); CHLORIDE 106 mmol/L (98-107); GFR 68.9; GLUCOSE 100 mg/dL (70-99); POTASSIUM 4.1 mmol/L (3.5-5.1); SODIUM 142 mmol/L (136-145)
[2017-05-12 10:17] LABS: ALBUMIN 3.3 g/dL (3.4-5.0); ALK PHOS 190 U/L (46-116); ALT (SGPT) 22 U/L (14-59); AST (SGOT) 17 U/L (15-37); DIRECT BILIRUBIN < 0.1 mg/dL (0.0-0.2); LIPASE 201 U/L (73-393); TOTAL BILIRUBIN 0.1 mg/dL (0.2-1.0); TOTAL PROTEIN 8.1 g/dL (6.4-8.2)
[2017-05-12 10:22] LABS: NT-PRO BNP 43 pg/mL (0-124); TROPONINI < 0.017 ng/mL (0.000-0.055)
[2017-05-12] MEDS: ASPIRIN CHEWABLE 81 MG TABLET. PO (10:29)
[2017-05-12] MEDS: NITROGLYCERIN SUBLINGUAL 0.4 MG BOTTLE OF 25. SL ×3 (10:30→11:38)
[2017-05-12] MEDS ORDERED: ONDANSETRON PF 4 MG/2 ML VIAL. IV (10:30)
[2017-05-12] MEDS: IV NORMAL SALINE 1000ML BAG 1,000 ML IV ×2 (10:32→20:37)
[2017-05-12] MEDS: LISINOPRIL 5 MG TABLET. PO (14:04)
[2017-05-12] MEDS: MORPHINE SULFATE 2 MG/ML DISP.SYRIN. IV (16:46)
[2017-05-12] MEDS: ENOXAPARIN 40 MG/0.4 ML SYRINGE. SQ (16:46)
[2017-05-12] MEDS ORDERED: LABETALOL 20 MG/4 ML DISP.SYRIN. IVP (20:30)
[2017-05-12] MEDS ORDERED: NON FORMULARY ITEM (Albuterol Sulfate (Albuterol Sulfate Neb Soln) 1 VIAL) NEB (20:30)
[2017-05-12] MEDS ORDERED: ALBUTEROL SULFATE 2.5 MG/3 ML NEBU. NEB (20:45)
[2017-05-12] MEDS: PHENYTOIN SODIUM EXTENDED 100 MG CAPSULE PO (21:19)
[2017-05-12] MEDS: ZOLPIDEM 5 MG TABLET. PO (21:19)
[2017-05-12] MEDS: BENZONATATE 100 MG CAPSULE. PO (21:19)
[2017-05-12] MEDS: TOPIRAMATE 100 MG TABLET. PO (21:19)
[2017-05-13] MEDS: MORPHINE SULFATE 4 MG/ML DISP.SYRIN. IV (01:56)
[2017-05-13] MEDS: IV NORMAL SALINE 1000ML BAG 1,000 ML IV (05:41)
[2017-05-13 06:14] LABS: BASO # 0.1 x10^3/uL (0.0-0.2); BASO % 1 % (0-3); EOS # 0.2 x10^3/uL (0.0-0.7); EOS % 2 % (0-3); HEMATOCRIT 39.8 % (36.0-47.0); HEMOGLOBIN 13.3 g/dL (12.0-15.5); LYMPH # 5.7 x10^3/uL (1.0-4.8); LYMPH % 59 % (24-48); MEAN CORPUSCULAR HEMOGLOBIN 28 pg (25-35); MEAN CORPUSCULAR HGB CONC 33 g/dL (31-37); MEAN CORPUSCULAR VOLUME 84 fL (79-100); MONO # 0.5 x10^3/uL (0.0-1.1); MONO % 5 % (0-9); NEUT # 3.2 x10^3uL (1.8-7.7); NEUT % 33 % (31-73); PLATELET COUNT 172 x10^3/uL (140-400); RED BLOOD COUNT 4.73 x10^6/uL (3.50-5.40); RED CELL DISTRIBUTION WIDTH 13.8 % (11.5-14.5); WHITE BLOOD COUNT 9.7 x10^3/uL (4.0-11.0)
[2017-05-13 06:31] LABS: ANION GAP 10 (6-14); BLOOD UREA NITROGEN 16 mg/dL (7-20); CALCIUM 8.6 mg/dL (8.5-10.1); CARBON DIOXIDE 24 mmol/L (21-32); CHLORIDE 105 mmol/L (98-107); CREATININE 0.8 mg/dL (0.6-1.0); GFR 89.1; GLUCOSE 91 mg/dL (70-99); POTASSIUM 4.1 mmol/L (3.5-5.1); SODIUM 139 mmol/L (136-145)
[2017-05-13 06:33] LABS: ADD MAN DIFF? YES
[2017-05-13] MEDS: tiZANidine 4 MG TABLET. PO (08:53)
[2017-05-13] MEDS: CITALOPRAM 20 MG TABLET. PO (08:53)
[2017-05-13] MEDS: CETIRIZINE HCL 10 MG TABLET. PO (08:53)
[2017-05-13] MEDS: ASPIRIN ENTERIC COATED 81 MG TABLET.DR. PO (08:54)
[2017-05-13] MEDS: BENZONATATE 100 MG CAPSULE. PO (08:54)
[2017-05-13] MEDS: LISINOPRIL 5 MG TABLET. PO (08:54)
[2017-05-13] MEDS: FLU VACC QS2017-18 (36MOS+)/PF 0.5 ML SYRINGE. VAX IM (08:57)
[2017-05-13] MEDS: PNEUMOC CONJ VACC 23-VALENT 0.5 ML VIAL. VAX IM (08:59)
[2017-05-13] MEDS ORDERED: ASPIRIN ENTERIC COATED 81 MG TABLET.DR. PO (09:00)
[2017-05-13] MEDS ORDERED: PNEUMOCOCCAL VAX SCREEN BY RX. MC (09:00)
[2017-05-13] MEDS ORDERED: INFLUENZA VAX SCREEN BY RX. MC (09:00)
[2017-05-13 09:17] LABS: % EOS 2 % (0-5); % LYMPHS 59 % (24-48); % MONOS 4 % (0-10); % SEGS 35 % (35-66); PLT ESTIMATE ADEQUATE (ADEQUATE)
[2017-05-13 09:19] LABS: TARGET CELLS PRESENT
[2017-05-13] MEDS ORDERED: PHENYTOIN SODIUM EXTENDED 100 MG CAPSULE PO (21:00)
== END 2017-05-13 12:18 | disposition home or self-care (01) | DRG 206 ==
LOC: ER 09:25 → ED HOLD 10:26 → 4 NORTH 12:44
DX: M94.0 Chondrocostal junction syndrome [Tietze] (principal); F17.210 Nicotine dependence, cigarettes, uncomplicated; R07.89 Other chest pain; I25.10 Atherosclerotic heart disease of native coronary artery without angina pectoris; F41.9 Anxiety disorder, unspecified; I10 Essential (primary) hypertension; M19.90 Unspecified osteoarthritis, unspecified site; I99.8 Other disorder of circulatory system; I73.9 Peripheral vascular disease, unspecified; J44.9 Chronic obstructive pulmonary disease, unspecified; Z82.49 Family history of ischemic heart disease and other diseases of the circulatory system; Z86.73 Personal history of transient ischemic attack (TIA), and cerebral infarction without residual deficits; Z91.19 Patient's noncompliance with other medical treatment and regimen; Z95.5 Presence of coronary angioplasty implant and graft
CPT/HCPCS: 36415; 71045; 80048; 80076; 83690; 83880; 84484; 85007; 85025; 85610; 85730; 90686; 90732; 93005; 93306; 93925; 99285; 99285-25; 99406; J1650; J2270; J7030

== ENCOUNTER → 2017-05-25 | Outpatient (CLI) | payer OTHER | END | disposition home or self-care (01) | LOC: MAMMO 12:37 | DX: Z12.31 Encounter for screening mammogram for malignant neoplasm of breast (principal) | CPT/HCPCS: 77067 ==

== ENCOUNTER → 2017-06-01 | Outpatient (CLI) | payer OTHER ==
[2017-06-01] MEDS: GADOBUTROL 7.5 MMOL/7.5 ML VIAL IV (10:37)
== END | disposition home or self-care (01) ==
LOC: KCIC MRI 08:32
DX: G35 Multiple sclerosis (principal)
CPT/HCPCS: 70553; A9585

== ENCOUNTER 2017-07-21 13:26 | Emergency (ER) | payer OTHER | END 2017-07-21 14:25 | disposition home or self-care (01) | LOC: ER 13:26 | DX: L02.415 Cutaneous abscess of right lower limb (principal); F12.10 Cannabis abuse, uncomplicated; Z86.73 Personal history of transient ischemic attack (TIA), and cerebral infarction without residual deficits | CPT/HCPCS: 99283 ==

== ENCOUNTER 2017-08-01 11:41 | Emergency (ER) | payer OTHER | END 2017-08-01 13:35 | disposition home or self-care (01) | LOC: ER 11:41 | DX: L02.415 Cutaneous abscess of right lower limb (principal) | CPT/HCPCS: 99283 ==

== ENCOUNTER → 2018-05-26 | Outpatient (CLI) | payer OTHER ==
[2017-08-01 13:00] VITALS: BP 126/78
[~2018-05-26] MED LIST changes: +ASPI-482 PO; +CETI10TA16 PO; +CITA20TA6 PO; +CLIN300C8 PO; +SULF1TAB24 PO; +TRAM50TA PO
--- NOTE | 2018-05-26 09:16 | RAD ---
DATE: 05/26/2018 EXAM: DIGITAL SCREEN BILAT W/CAD HISTORY: Routine screening COMPARISON: 05/25/2017 This study was interpreted with the benefit of Computerized Aided Detection (CAD). Breast Density: SCATTERED The breast parenchyma shows scattered fibroglandular densities. Breast parenchyma level B. FINDINGS: No new or enlarging breast densities are seen. Benign type calcifications are again noted. No suspicious microcalcifications have developed. IMPRESSION: Stable mammograms without evidence of malignancy. BI-RADS CATEGORY: 2 BENIGN FINDING(S) RECOMMENDED FOLLOW-UP: 12M 12 MONTH FOLLOW-UP PQRS compliance statement: Patient information was entered into a reminder system with a target due date for the next mammogram. Mammography is a sensitive method for finding small breast cancers, but it does not detect them all and is not a substitute for careful clinical examination. A negative mammogram does not negate a clinically suspicious finding and should not result in delay in biopsying a clinically suspicious abnormality. "Our facility is accredited by the [employer] Mammography Program."
== END | disposition home or self-care (01) ==
LOC: MAMMO 08:04
PROVIDERS: ATTEND Pediatrics
DX: Z12.31 Encounter for screening mammogram for malignant neoplasm of breast (principal)
CPT/HCPCS: 77067

== ENCOUNTER → 2018-11-30 | Outpatient (CLI) | payer MEDICAID, OTHER ==
[2017-08-01 13:00] VITALS: BP 126/78
[~2018-11-30] MED LIST changes: -TIZA4TAB PO; +TIZA4TAB2 PO
[2018-11-30 12:18] LABS: CHOLESTEROL/HDL RATIO 2.6
[2018-11-30 12:26] LABS: FREE T4 0.53 ng/dL (0.76-1.46); THYROID STIM HORMONE (TSH) 1.16 uIU/mL (0.358-3.74)
== END | disposition home or self-care (01) ==
LOC: LAB 11:41
PROVIDERS: ATTEND Obstetrics & Gynecology
DX: Z01.419 Encounter for gynecological examination (general) (routine) without abnormal findings (principal)
CPT/HCPCS: 36415; 80061; 84439; 84443

== ENCOUNTER → 2019-03-15 | Outpatient (CLI) | payer MEDICAID ==
[2017-08-01 13:00] VITALS: BP 126/78
== END | disposition home or self-care (01) ==
LOC: LAB 09:44
PROVIDERS: ATTEND Obstetrics & Gynecology
DX: E03.9 Hypothyroidism, unspecified (principal)
CPT/HCPCS: 36415; 84442; 84443

== ENCOUNTER → 2019-06-02 | Outpatient (CLI) | payer MEDICAID ==
[2017-08-01 13:00] VITALS: BP 126/78
--- NOTE | 2019-06-03 11:57 | RAD ---
History: Routine screening. Technique: Bilateral digital mammographic routine views were obtained with CAD - computer aided detection. Comparison: 05/26/2018, 05/25/2017. Findings: Breast Tissue Density C : The breast tissue is heterogeneously dense. Scattered fibroglandular elements may obscure underlying pathology. There are no suspicious masses, microcalcifications or areas of architectural distortion. Impression: No suspicious findings. BI-RADS Category 1: Negative. Normal interval followup. Your mammogram demonstrates that you have dense breast tissue, which could hide abnormalities, and if you have other risk factors for breast cancer that have been identified, you might benefit from supplemental screening tests that may be suggested by your ordering physician. Dense breast tissue, in and of itself, is a relatively common condition. This information is not provided to cause undue concern, but rather to raise your awareness and to promote discussion with your physician regarding the presence of other risk factors, in addition to dense breast tissue. A report of your mammography results will be sent to you and your physician. You should contact your physician if you have any questions or concerns regarding this report. A mammogram does not have 100% sensitivity and therefore a negative imaging study should not delay further work up of a suspicious abnormality. The patient will receive a letter with the results in the mail. Patient information is entered into the reminder system with a target due date for the next screening mammogram. The patient will receive a reminder. "Our facility is accredited by the [employer] Mammography Program."
== END | disposition home or self-care (01) ==
LOC: MAMMO 08:18
PROVIDERS: ATTEND Pediatrics
DX: Z12.31 Encounter for screening mammogram for malignant neoplasm of breast (principal)
CPT/HCPCS: 77067

== ENCOUNTER → 2019-09-09 | Outpatient (CLI) | payer MEDICAID ==
[2017-08-01 13:00] VITALS: BP 126/78
[~2019-09-09] MED LIST changes: +GADOTERATE 7.5 MMOL/15ML VIAL. IVP ONE
--- NOTE | 2019-09-09 12:20 | KCIC ---
EXAMINATION: Magnetic resonance imaging (MRI) of the brain and brainstem without and with contrast 09/09/2019 11:00 AM HISTORY: Epilepsy TECHNIQUE: Multiplanar multi-weighted MRI of the brain and brainstem was performed without and with intravenous contrast using the seizure brain protocol. Contrast information: 12 mL Gadolinium based contrast COMPARISON: MRI brain 06/01/2017. FINDINGS: Evaluation degraded by motion artifact. The scalp and calvarium are normal. The superior sagittal sinus demonstrates normal venous flow. The corpus callosum is normal in shape and signal intensity. The posterior fossa is unremarkable. The pituitary and sella are normal. The brainstem and craniocervical junction are unremarkable. Ventricles, sulci and basal cisterns are prominent compatible with moderate generalized cerebral volume loss. There are T2/FLAIR signal hyperintense foci in the periventricular and subcortical white matter most suggestive of mild chronic small vessel ischemic changes. There is a remote lacunar infarct in the right caudate head. Mild bilateral caudate atrophy. Hippocampi are symmetric in signal intensity and morphology, limited by motion. No heterotopic vitale matter is identified. No deformation of cortical development although evaluation limited by motion. Diffusion weighted images reveal no hyperintensities to suggest acute cerebral infarction. The susceptibility weighted sequences reveal no evidence of acute or chronic hemorrhage. No hydrocephalus. There are no areas of abnormal contrast enhancement. There is a moderate sized mucus retention cyst in the left maxillary sinus. The visualized portions of the mastoids are unremarkable. The orbits appear normal. Normal flow voids are demonstrated in the carotid arteries and basilar artery. IMPRESSION: 1. Evaluation is degraded by motion artifact. 2. Moderate generalized cerebral volume loss. Evaluation of the hippocampi is partly limited by motion. However, the hippocampi are relatively symmetric in signal intensity and morphology. Findings appear stable from the prior examination. 3. Bilateral caudate atrophy. Remote lacunar infarct in the right caudate head. Findings are stable. 4. There are T2/FLAIR signal hyperintense foci in the periventricular and subcortical white matter most suggestive of mild chronic small vessel ischemic changes. Electronically signed by: Domonique Sarkar MD (09/09/2019 12:17 PM) [facility]
== END ==
LOC: KCIC MRI 09:20
PROVIDERS: ATTEND Psychiatry & Neurology Neurology with Special Qualifications in Child Neurology
DX: G31.89 Other specified degenerative diseases of nervous system (principal); I63.81 Other cerebral infarction due to occlusion or stenosis of small artery; G37.9 Demyelinating disease of central nervous system, unspecified; G40.909 Epilepsy, unspecified, not intractable, without status epilepticus
CPT/HCPCS: 70553; A9575

== ENCOUNTER → 2019-09-13 | Outpatient (CLI) | payer MEDICAID ==
[2017-08-01 13:00] VITALS: BP 126/78
[~2019-09-13] MED LIST changes: -GADOTERATE 7.5 MMOL/15ML VIAL. IVP ONE
[2019-09-13 10:55] LABS: PHENY 8.4 mcg/mL (10.0-20.0)
== END | disposition home or self-care (01) ==
LOC: LAB 09:32
PROVIDERS: ATTEND Psychiatry & Neurology Neurology with Special Qualifications in Child Neurology
DX: G40.909 Epilepsy, unspecified, not intractable, without status epilepticus (principal)
CPT/HCPCS: 36415; 80185

== ENCOUNTER → 2019-12-19 | Outpatient (CLI) | payer MEDICAID ==
[2017-08-01 13:00] VITALS: BP 126/78
[2019-12-19 10:15] LABS: CHOLESTEROL/HDL RATIO 3.1
== END | disposition home or self-care (01) ==
LOC: LAB 09:34
PROVIDERS: ATTEND Obstetrics & Gynecology
DX: Z01.419 Encounter for gynecological examination (general) (routine) without abnormal findings (principal); E03.9 Hypothyroidism, unspecified
CPT/HCPCS: 36415; 80061; 84443

== ENCOUNTER → 2020-06-04 | Outpatient (CLI) | payer MEDICAID ==
[2017-08-01 13:00] VITALS: BP 126/78
[~2020-06-04] MED LIST changes: -CLIN300C8 PO; +CLIN300C9 PO
--- NOTE | 2020-06-05 15:38 | RAD ---
DATE: 06/04/2020 9:21 AM EXAM: DIGITAL SCREEN BILAT W/CAD HISTORY: Screening COMPARISON: 06/02/2019, 05/26/2018 Bilateral full field craniocaudal and mediolateral oblique images were obtained using digital technique. Bilateral X CCL views were also obtained. This study was interpreted with the benefit of Computerized Aided Detection (CAD). FINDINGS: Breast Density: HETERO The breast parenchyma Is heterogeneously dense, which could reduce sensitivity of mammography. Breast parenchyma level C Negative right mammogram. An asymmetry in the anterior third left breast best seen on the cc view could be an artifact of overlapping dense fibroglandular tissue but needs additional imaging with spot compression cc view and a true lateral view with possible ultrasound. IMPRESSION: Left breast asymmetry, findings for which additional imaging is advised. BI-RADS CATEGORY: 0 INCOMPLETE: NEEDS ADDITIONAL IMAGING EVALUATION AND/OR PRIOR MAMMOGRAMS FOR COMPARISON. RECOMMENDED FOLLOW-UP: ADD ADDITIONAL IMAGING The patient will be contacted to return for additional imaging and a supplemental report will follow. PQRS compliance statement: Patient information was entered into a reminder system with a target due date for the next mammogram. Mammography is a sensitive method for finding small breast cancers, but it does not detect them all and is not a substitute for careful clinical examination. A negative mammogram does not negate a clinically suspicious finding and should not result in delay in biopsying a clinically suspicious abnormality. "Our facility is accredited by the [employer] Mammography Program."
== END ==
LOC: MAMMO 10:58
PROVIDERS: ATTEND Pediatrics
DX: Z12.31 Encounter for screening mammogram for malignant neoplasm of breast (principal)
CPT/HCPCS: 77067

== ENCOUNTER → 2020-06-20 | Outpatient (CLI) | payer MEDICAID ==
[2017-08-01 13:00] VITALS: BP 126/78
--- NOTE | 2020-06-20 17:41 | RAD ---
Examination: Left diagnostic mammogram INDICATION: Screening recall for asymmetry in the superior left breast. COMPARISON: 06/04/2020 bilateral mammogram. TECHNIQUE: A full field ML, and spot compression views in the CC projection of the left breast were o btained. In addition, CC rolled medial and lateral views were obtained. Images reviewed with computer -aided detection. FINDINGS: Heterogeneously dense breast parenchyma. The questioned asymmetry did not persist on additional mammographic views. IMPRESSION: Negative left diagnostic mammogram. No persistent mammographic abnormality. Recommend return to routine annual mammographic screening. BI-RADS Category 1 Negative Patient entered into a reminder system with targeted due date for next mammogram. Electronically signed by: Pedro Moeller MD (06/20/2020 5:39 PM) [id number]
== END ==
LOC: MAMMO 09:45
PROVIDERS: ATTEND Pediatrics
DX: R92.8 Other abnormal and inconclusive findings on diagnostic imaging of breast (principal)
CPT/HCPCS: 77065

== ENCOUNTER → 2021-06-20 | Outpatient (CLI) | payer MEDICAID ==
[2017-08-01 13:00] VITALS: BP 126/78
[~2021-06-20] MED LIST changes: +CLIN-94 PO; -CLIN300C9 PO; +TIZA-75 PO; -TIZA4TAB2 PO
--- NOTE | 2021-06-20 12:13 | RAD ---
Bilateral digital screening mammogram (2-D): Reason for examination: Routine screening. Comparison: Mammograms from the 06/04/2020, 06/02/2019, 05/26/2018. Interpretation was made with the benefit of CAD. FINDINGS: Breast density: Category C. There is heterogeneously dense fibroglandular tissue, which may obscure s mall masses. No new suspicious breast mass, malignant appearing calcifications, or architectural distortion is see n. IMPRESSION: No evidence of malignancy. Recommend routine screening. Assessment: BI-RADS 1. Negative. Recommendation: Routine screening mammograms. Your patient's mammogram demonstrates that she has dense breast tissue (breast density category C or D), which could hide abnormalities, and if she has other risk factors for breast cancer that have bee n identified, she might benefit from supplemental screening tests that may be suggested by you as her ordering physician. Dense breast tissue, in and of itself, is a relatively common condition. Therefo re, this information is not provided to cause undue concern, but rather to raise your awareness and t o promote discussion with your patient regarding the presence of other risk factors, in addition to d ense breast tissue. This patient's information has been entered into a reminder system for the patient to be notified wit h the results of her examination by mail and a target date for the next mammogram. A reminder letter will be generated. Electronically signed by: Danna Howell MD (06/20/2021 12:10 PM) [id number]
== END ==
LOC: MAMMO 10:26
PROVIDERS: ATTEND Pediatrics
DX: Z12.31 Encounter for screening mammogram for malignant neoplasm of breast (principal)
CPT/HCPCS: 77067

== ENCOUNTER → 2021-08-14 | Outpatient (CLI) | payer MEDICAID ==
[2017-08-01 13:00] VITALS: BP 126/78
--- NOTE | 2021-08-14 14:27 | KCIC ---
MRI BRAIN WO Date: 08/14/2021 9:52 AM Indication: Epilepsy, tension headaches. Demyelinating disease of [employer]. Forgetful, dizzy. Comparison: 09/09/2019. Technique: Multiplanar multisequence MRI of the brain was performed without intravenous contrast usin g the seizure protocol. Findings: Motion artifact degrades image quality. No acute infarct. No acute or chronic hemorrhage. The ventricles are stable in size and configuration without hydrocephalus. Moderate scattered FLAIR hyperintensities in the subcortical and periventricu lar deep white matter, a nonspecific finding, most commonly seen with chronic small vessel ischemic d isease. Moderate cerebral volume loss. Right caudate head chronic lacunar infarct. Mild symmetric hippocampal volume loss, not out of proportion with cerebral volume loss. Hippocampi a re other laboy normal in morphology. The scalp and calvarium are normal. The pituitary and sella are normal. No Chiari malformation. Incom pletely characterized degenerative spondylosis of the visualized upper cervical spine. The visualized orbits and globes are normal. Right maxillary sinus mucous retention cyst. Pneumatized left petrous apex with fluid. Normal flow voids within the vertebral, basilar, and internal carotid arteries indicating patency. IMPRESSION: 1. No acute infarct, acute hemorrhage, mass, hydrocephalus. 2. Stable moderate scattered FLAIR hyperintensities in the subcortical and periventricular deep white matter, a nonspecific finding which can be seen with chronic small vessel ischemic disease, sequela of chronic migraines, demyelinating disease, drug toxicity, prior infection (Lyme disease), prior inj ury, or vasculitis. 3. Moderate cerebral volume loss. Electronically signed by: Geo López MD (08/14/2021 2:25 PM) [facility]
== END ==
LOC: KCIC MRI 09:01
PROVIDERS: ATTEND Psychiatry & Neurology Neurology with Special Qualifications in Child Neurology
DX: G31.89 Other specified degenerative diseases of nervous system (principal); J34.1 Cyst and mucocele of nose and nasal sinus; G37.9 Demyelinating disease of central nervous system, unspecified; G40.909 Epilepsy, unspecified, not intractable, without status epilepticus; G44.209 Tension-type headache, unspecified, not intractable; M47.812 Spondylosis without myelopathy or radiculopathy, cervical region
CPT/HCPCS: 70551